=== PATIENT | female | born 1985 | race African-American/Black ===

== ENCOUNTER 2023-03-31 16:26 | Inpatient (IN) | payer OTHER ==
[~2023-03-31] VITALS: Ht 162.6 cm; Wt 108.9 kg
[2023-03-31 19:35] LABS: HEMATOCRIT 38.7 % (36.0-45.00); HEMOGLOBIN 13.3 g/dL (12.0-15.00); MEAN CORPUSCULAR HEMOGLOBIN 27.8 pg (27.00-32.0); MEAN CORPUSCULAR HGB CONC 34.3 g/dl (32.0-36.0); PLATELET COUNT 266 K/uL (150-450); RED BLOOD COUNT 4.78 M/uL (4.00-6.00); RED CELL DISTRIBUTION WIDTH 14.8 % (11.5-14.5)
[2023-03-31 20:49] LABS: ABG PH 7.436 (7.35-7.45); ABG PO2 63.6 mmHg (80-100); ABG pCO2 34.6 mmHg (35-45); BASE EXCESS -0.8 mmol/l
[2023-03-31 20:51] LABS: BICARBONATE 22.8 mmol/l (23-25); Tco2 23.8 mmol/l; allen test SATISFACTORY; o2 21 %; puncture site RADIAL RIGHT
[2023-03-31 20:52] LABS: SaO2 92.7 %
[2023-04-01 00:33] LABS: ABG PH 7.423 (7.35-7.45); ABG PO2 37.1 mmHg (80-100); ABG pCO2 35.2 mmHg (35-45)
[2023-04-01 00:34] LABS: BASE EXCESS -1.3 mmol/l; BICARBONATE 22.5 mmol/l (23-25); SaO2 71.9 %; Tco2 23.5 mmol/l; o2 21 %; puncture site RADIAL LEFT
[2023-04-01 00:35] LABS: allen test SATISFACTORY
[2023-04-01 17:47] LABS: ALBUMIN 3.6 gm/dL (3.4-5.0); BILIRUBIN TOTAL 0.31 mg/dL (0.3-1.2); CREATININE SERUM 1.13 mg/dL (0.55-1.02); GFR 53.89; GLOBULINA 4.3 G/DL (2.4-3.5); POTASSIUM 3.27 mEq/L (3.5-5.1); TOTAL PROTEIN 7.9 gm/dL (6.4-8.2)
[2023-04-01 17:51] LABS: INR 1.01; PROTHROMBIN TIME 10.6 SECONDS (9.0-11.5)
[2023-04-01 17:54] LABS: D DIMER 1.36 MG/L; PARTIAL THROMBOPLASTIN TIME 30.8 SECONDS (22.0-34.0)
[2023-04-01 18:20] LABS: ABG PH 7.442 (7.35-7.45); ABG PO2 68.8 mmHg (80-100); ABG pCO2 32.9 mmHg (35-45); BASE EXCESS -1.3 mmol/l; SaO2 94.2 %; allen test SATISFACTORY; o2 21 %; puncture site RADIAL RIGHT
[2023-04-01 19:22] LABS: PH,URINE 5.5 (5.0-8.0); URINE APPEARANCE Clear; URINE BILIRRUBIN Negative (NEGATIVE); URINE BLOOD Large; URINE COLOR Yellow; URINE LEUKOCYTE Negative; URINE NITRATE Negative; URINE PROTEIN Trace (NEGATIVE); URINE UROBILINOGEN 0.2 E.U./dl
[2023-04-01 19:26] LABS: URINE BACTERIA 302.3 uL (0.0-1933); URINE EPITHELIAL CELLS 19.7 uL (0.0-38.8); URINE RBC 1515.1 uL (0.0-20.8); URINE WBC 12.6 uL (0.0-23.2)
[2023-04-01 19:40] LABS: URINE GLUCOSE 100 MG/DL (NEGATIVE)
== END 2023-04-02 09:35 | disposition home or self-care (01) | DRG 203 ==
LOC: ER 16:26 → MEDJ 04-01 17:32
PROVIDERS: General Practice; ADMIT Internal Medicine; ATTEND Internal Medicine
PROC: 4A033R1 Measurement of Arterial Saturation, Peripheral, Percutaneous Approach (ICD-10-PCS; principal; 2023-04-01)
PROC: 3E0F7GC Introduction of Other Therapeutic Substance into Respiratory Tract, Via Natural or Artificial Opening (ICD-10-PCS; 2023-04-01)
DX: J45.41 Moderate persistent asthma with (acute) exacerbation (principal); R09.02 Hypoxemia; J20.9 Acute bronchitis, unspecified; J45.902 Unspecified asthma with status asthmaticus; J45.901 Unspecified asthma with (acute) exacerbation; Z20.822 Contact with and (suspected) exposure to COVID-19